=== PATIENT | male | born 1975 | race Caucasian/White ===

== ENCOUNTER 2017-01-28 17:37 | Emergency (ER) | payer MEDICAID ==
[~2017-01-28] VITALS: Ht 172.7 cm; Wt 81.0 kg
[2017-01-28 17:39] VITALS: BP 162/92
== END 2017-01-28 19:05 | disposition other institution (70) ==
LOC: ED 18:37
DX: K02.9 Dental caries, unspecified (principal)
CPT/HCPCS: 99285

== ENCOUNTER 2017-08-27 00:03 | Emergency (ER) | payer MEDICAID ==
[~2017-08-27] VITALS: Ht 172.7 cm; Wt 72.3 kg
[2017-08-27 00:07] VITALS: BP 143/93
== END 2017-08-27 01:24 | disposition home or self-care (01) ==
LOC: ED 01:18
DX: J02.0 Streptococcal pharyngitis (principal); F17.200 Nicotine dependence, unspecified, uncomplicated
CPT/HCPCS: 99283